=== PATIENT | female | born 1980 | race American Indian/Alaskan Native ===

== ENCOUNTER 2023-05-12 09:32 | Emergency (ER) | payer BC, OTHER ==
[~2023-05-12] VITALS: Ht 162.6 cm; Wt 105.1 kg
[2023-05-12] MEDS ORDERED: METOPROLOL TART25 MG PO (10:11)
[2023-05-12] MEDS ORDERED: LISINOPRIL10 MG PO (10:11)
[2023-05-12 11:37] VITALS: BP 156/109
== END 2023-05-12 11:38 | disposition home or self-care (01) ==
LOC: ED 09:32
DX: S20.212A Contusion of left front wall of thorax, initial encounter (principal); W10.9XXA Fall (on) (from) unspecified stairs and steps, initial encounter; Z79.899 Other long term (current) drug therapy
CPT/HCPCS: 71101; 99283-25; A9270